=== PATIENT | female | born 1955 | race Caucasian/White ===

== ENCOUNTER 2020-11-30 12:16 | Inpatient (IN) ==
[2020-12-04] MEDS ORDERED: *HR* Dextrose 50 % in Water (Vial) 50 ML VIAL IVP PRN (14:58)
[2020-12-04] MEDS ORDERED: D5% in Water 1,000 ML IVC PRN (14:58)
[2020-12-04] MEDS ORDERED: Dextrose Gel 15 GM/37.5 ML TUBE PO PRN ×2 (14:58)
[2020-12-04] MEDS ORDERED: methocarbamoL 750 MG TABLET PO PRN (14:59)
[2020-12-04] MEDS ORDERED: Ondansetron ODT 4 MG TAB.RAPDIS SL PRN (14:59)
[2020-12-04] MEDS ORDERED: *HR* HYDROcodone/Acet 5/325 mg TABLET PO PRN (15:01)
[2020-12-04] MEDS ORDERED: MOM Conc 10 ML UD.LIQ PO PRN (15:04)
[2020-12-04] MEDS: Gabapentin 100 MG CAPSULE PO SCH (16:15)
[2020-12-04] MEDS: Furosemide 20 MG TABLET PO SCH ×2 (16:15→17:22)
[2020-12-04] MEDS: Insulin LISPRO 300 UNITS/3 ML VIAL SUBQ SCH ×2 (16:16→19:50)
[2020-12-04] MEDS ORDERED: Metoclopramide 10 MG/2 ML VIAL IVP ONE (18:35)
[2020-12-04] MEDS: Ondansetron ODT 4 MG TAB.RAPDIS SL PRN (18:41)
[2020-12-04] MEDS: Gabapentin 400 MG CAPSULE PO SCH (19:49)
[2020-12-04] MEDS: Magnesium Oxide 400 MG TABLET PO SCH (19:49)
[2020-12-04] MEDS: Sennosides/Docusate Sodium TABLET PO SCH (19:52)
[2020-12-04 22:29] LABS: Bilirubin,Urine Negative (Negative); Blood,Urine Negative (Negative); Clarity,Urine Slightly Cloudy (Clear); Color,Urine Dark Yellow (Yellow); Glucose,Urine (UA) Normal (Normal); Ketones,Urine Trace mg/dL (Negative); Leukocyte Esterase,Urine Negative (Negative); Nitrite,Urine Negative (Negative); Protein,Urine Negative (Neg-Trace); Urobilinogen,Urine Normal (Normal)
[2020-12-05] MEDS: *HR* OxyCODONE/APAP 5/325 TABLET PO PRN ×4 (00:14→19:45)
[2020-12-05] MEDS: Sennosides/Docusate Sodium TABLET PO SCH ×3 (00:15→19:45)
[2020-12-05] MEDS: *HR* Enoxaparin 40 MG/0.4 ML SYRINGE SQ SCH (04:51)
[2020-12-05 05:09] LABS: Hematocrit 30.6 % (35.3-44.9); Hemoglobin 9.5 g/dL (11.5-15.4); Mean Corpuscular Hemoglobin 34.4 pg (28.0-33.3); Mean Corpuscular Volume 110.9 fL (83.0-100.0); Mean Platelet Volume 8.7 fL (9.4-12.4); Red Blood Count 2.76 M/mcL (3.82-4.97); Red Cell Distribution Width 15.1 % (11.5-14.5); White Blood Count 2.9 K/mcL (4.3-11.1)
[2020-12-05 05:13] LABS: Platelet Count 289 K/mcL (140-400)
[2020-12-05 05:21] LABS: Alanine Aminotransferase 17 Units/L (7-52); Albumin 2.5 g/dL (3.5-5.7); Albumin/Globulin Ratio 1.1 (1.1-2.2); Alkaline Phosphatase 105 Units/L (34-104); Aspartate Amino Transferase 23 Units/L (13-39); BUN/Creatinine Ratio 19 (6-26); Bilirubin,Total 0.8 mg/dL (0.3-1.0); Blood Urea Nitrogen 8 mg/dL (8-23); Calcium 8.1 mg/dL (8.6-10.3); Carbon Dioxide 28 mEq/L (23-29); Chloride 105 mEq/L (98-107); Globulin 2.2 g/dL (2.4-3.5); Glucose 96 mg/dL (70-105); Magnesium 1.7 mg/dL (1.6-2.6); Osmolality,Calculated 288 (280-300); Potassium 4.4 mEq/L (3.5-5.1); Sodium 140 mEq/L (136-145); Total Protein 4.7 g/dL (6.4-8.9); Uric Acid 6.6 mg/dL (2.3-7.6); eGFR For African Americans > 60 (> 60); eGFR For Non-African Americans > 60 (> 60)
[2020-12-05] MEDS: Insulin LISPRO 300 UNITS/3 ML VIAL SUBQ SCH ×4 (07:47→21:16)
[2020-12-05] MEDS: Ondansetron ODT 4 MG TAB.RAPDIS SL PRN ×2 (08:17→15:54)
[2020-12-05] MEDS: polyethylene glycoL 3350 17 GM POWD.PACK PO SCH (08:54)
[2020-12-05] MEDS: Cholecalciferol (D-3) 1,000 UNIT (25MCG) TABLET PO SCH (08:54)
[2020-12-05] MEDS: Furosemide 20 MG TABLET PO SCH (08:54)
[2020-12-05] MEDS: Magnesium Oxide 400 MG TABLET PO SCH ×2 (08:54→19:45)
[2020-12-05] MEDS: Aspirin Enteric Coated 325 MG Tablet PO SCH (08:54)
[2020-12-05] MEDS: Gabapentin 100 MG CAPSULE PO SCH ×2 (08:54→13:24)
[2020-12-05] MEDS: Multivit/Ca/Min/Fe/FA 1 TAB TABLET PO SCH (08:54)
[2020-12-05] MEDS: Bisacodyl 10 MG RECTAL SUPPOSITORY RC SCH (08:54)
[2020-12-05] MEDS: Cyanocobalamin (B-12) 1,000 MCG TABLET PO SCH (08:55)
[2020-12-05 09:36] LABS: Estimated Average Glucose 74 mg/dl; Hemoglobin A1C 4.2 %
[2020-12-05] MEDS: 0.9 % Sodium Chloride 1,000 ML IVC SCH (17:22)
[2020-12-05] MEDS: methocarbamoL 500 MG TABLET PO PRN (18:43)
[2020-12-05] MEDS: Gabapentin 400 MG CAPSULE PO SCH (19:45)
[2020-12-06] MEDS: *HR* OxyCODONE/APAP 5/325 TABLET PO PRN ×2 (05:38→14:25)
[2020-12-06] MEDS: methocarbamoL 500 MG TABLET PO PRN ×2 (05:38→17:55)
[2020-12-06] MEDS: *HR* Enoxaparin 40 MG/0.4 ML SYRINGE SQ SCH (05:39)
[2020-12-06 07:06] LABS: Hematocrit 25.1 % (35.3-44.9); Mean Corpuscular HGB Conc 31.9 g/dL (31.6-35.5); Mean Corpuscular Hemoglobin 35.2 pg (28.0-33.3); Mean Corpuscular Volume 110.6 fL (83.0-100.0); Mean Platelet Volume 8.8 fL (9.4-12.4); Platelet Count 222 K/mcL (140-400); Red Blood Count 2.27 M/mcL (3.82-4.97); Red Cell Distribution Width 14.7 % (11.5-14.5); White Blood Count 3.2 K/mcL (4.3-11.1)
[2020-12-06 07:16] LABS: BUN/Creatinine Ratio 25 (6-26); Blood Urea Nitrogen 12 mg/dL (8-23); Calcium 7.5 mg/dL (8.6-10.3); Carbon Dioxide 29 mEq/L (23-29); Chloride 105 mEq/L (98-107); Glucose 101 mg/dL (70-105); Osmolality,Calculated 284 (280-300); Potassium 4.4 mEq/L (3.5-5.1); Sodium 137 mEq/L (136-145); eGFR For African Americans > 60 (> 60); eGFR For Non-African Americans > 60 (> 60)
[2020-12-06] MEDS: Gabapentin 100 MG CAPSULE PO SCH ×2 (08:40→14:24)
[2020-12-06] MEDS: Sennosides/Docusate Sodium TABLET PO SCH ×2 (08:50→22:21)
[2020-12-06] MEDS: Bisacodyl 10 MG RECTAL SUPPOSITORY RC SCH ×2 (08:51→22:22)
[2020-12-06] MEDS: Cyanocobalamin (B-12) 1,000 MCG TABLET PO SCH (08:51)
[2020-12-06] MEDS: Cholecalciferol (D-3) 1,000 UNIT (25MCG) TABLET PO SCH (08:51)
[2020-12-06] MEDS: Multivit/Ca/Min/Fe/FA 1 TAB TABLET PO SCH (08:51)
[2020-12-06] MEDS: Magnesium Oxide 400 MG TABLET PO SCH ×2 (08:51→22:21)
[2020-12-06] MEDS: Ondansetron ODT 4 MG TAB.RAPDIS SL PRN (08:51)
[2020-12-06] MEDS: Aspirin Enteric Coated 325 MG Tablet PO SCH (08:51)
[2020-12-06] MEDS: polyethylene glycoL 3350 17 GM POWD.PACK PO SCH (08:51)
[2020-12-06] MEDS: Insulin LISPRO 300 UNITS/3 ML VIAL SUBQ SCH ×4 (08:52→21:53)
[2020-12-06] MEDS: 0.9 % Sodium Chloride 1,000 ML IVC SCH (08:52)
[2020-12-06] MEDS: Gabapentin 400 MG CAPSULE PO SCH (22:21)
[2020-12-07] MEDS: *HR* Enoxaparin 40 MG/0.4 ML SYRINGE SQ SCH (05:03)
[2020-12-07] MEDS: *HR* OxyCODONE/APAP 5/325 TABLET PO PRN ×2 (05:03→15:33)
[2020-12-07] MEDS: Insulin LISPRO 300 UNITS/3 ML VIAL SUBQ SCH ×4 (08:03→20:42)
[2020-12-07] MEDS: polyethylene glycoL 3350 17 GM POWD.PACK PO SCH (08:12)
[2020-12-07] MEDS: Cyanocobalamin (B-12) 1,000 MCG TABLET PO SCH (08:12)
[2020-12-07] MEDS: Ondansetron ODT 4 MG TAB.RAPDIS SL PRN (08:13)
[2020-12-07] MEDS: Gabapentin 100 MG CAPSULE PO SCH ×2 (08:13→15:34)
[2020-12-07] MEDS: methocarbamoL 500 MG TABLET PO PRN ×2 (08:13→20:14)
[2020-12-07] MEDS: Sennosides/Docusate Sodium TABLET PO SCH ×2 (08:13→20:21)
[2020-12-07] MEDS: Multivit/Ca/Min/Fe/FA 1 TAB TABLET PO SCH (08:13)
[2020-12-07] MEDS: Cholecalciferol (D-3) 1,000 UNIT (25MCG) TABLET PO SCH (08:13)
[2020-12-07] MEDS: Magnesium Oxide 400 MG TABLET PO SCH ×2 (08:14→20:12)
[2020-12-07] MEDS: Aspirin Enteric Coated 81 MG Tablet PO SCH (08:14)
[2020-12-07] MEDS: Furosemide 20 MG TABLET PO SCH (15:34)
[2020-12-07] MEDS: Gabapentin 400 MG CAPSULE PO SCH (20:13)
[2020-12-07] MEDS: Bisacodyl 10 MG RECTAL SUPPOSITORY RC SCH (20:20)
[2020-12-08] MEDS: *HR* OxyCODONE/APAP 5/325 TABLET PO PRN ×2 (01:48→11:29)
[2020-12-08] MEDS: *HR* Enoxaparin 40 MG/0.4 ML SYRINGE SQ SCH (06:50)
[2020-12-08] MEDS: Insulin LISPRO 300 UNITS/3 ML VIAL SUBQ SCH ×4 (07:58→20:38)
[2020-12-08] MEDS: Furosemide 20 MG TABLET PO SCH ×2 (08:47→16:39)
[2020-12-08] MEDS: Gabapentin 100 MG CAPSULE PO SCH ×2 (08:47→14:29)
[2020-12-08] MEDS: Multivit/Ca/Min/Fe/FA 1 TAB TABLET PO SCH (08:47)
[2020-12-08] MEDS: Cholecalciferol (D-3) 1,000 UNIT (25MCG) TABLET PO SCH (08:47)
[2020-12-08] MEDS: Aspirin Enteric Coated 81 MG Tablet PO SCH (08:47)
[2020-12-08] MEDS: Magnesium Oxide 400 MG TABLET PO SCH ×2 (08:47→20:39)
[2020-12-08] MEDS: Sennosides/Docusate Sodium TABLET PO SCH ×2 (08:47→20:38)
[2020-12-08] MEDS: polyethylene glycoL 3350 17 GM POWD.PACK PO SCH (08:47)
[2020-12-08] MEDS: Cyanocobalamin (B-12) 1,000 MCG TABLET PO SCH (08:47)
[2020-12-08] MEDS: *HR* HYDROcodone/Acet 7.5/325 mg TABLET PO PRN (08:55)
[2020-12-08] MEDS: methocarbamoL 500 MG TABLET PO PRN (14:29)
[2020-12-08] MEDS ORDERED: tiZANidine 4 MG TABLET PO PRN (15:21)
[2020-12-08] MEDS: Gabapentin 400 MG CAPSULE PO SCH (20:38)
[2020-12-08] MEDS: Bisacodyl 10 MG RECTAL SUPPOSITORY RC SCH (20:39)
[2020-12-09] MEDS: *HR* HYDROcodone/Acet 7.5/325 mg TABLET PO PRN ×4 (01:55→21:14)
[2020-12-09] MEDS: *HR* Enoxaparin 40 MG/0.4 ML SYRINGE SQ SCH (04:58)
[2020-12-09 05:46] LABS: Hematocrit 26.9 % (35.3-44.9); Hemoglobin 8.2 g/dL (11.5-15.4); Mean Corpuscular HGB Conc 30.5 g/dL (31.6-35.5); Mean Corpuscular Hemoglobin 33.2 pg (28.0-33.3); Mean Corpuscular Volume 108.9 fL (83.0-100.0); Mean Platelet Volume 9.2 fL (9.4-12.4); Platelet Count 260 K/mcL (140-400); Red Blood Count 2.47 M/mcL (3.82-4.97); Red Cell Distribution Width 14.4 % (11.5-14.5); White Blood Count 2.7 K/mcL (4.3-11.1)
[2020-12-09 06:04] LABS: Alanine Aminotransferase 13 Units/L (7-52); Albumin 2.2 g/dL (3.5-5.7); Albumin/Globulin Ratio 1.2 (1.1-2.2); Alkaline Phosphatase 104 Units/L (34-104); Aspartate Amino Transferase 20 Units/L (13-39); BUN/Creatinine Ratio 22 (6-26); Bilirubin,Total 0.5 mg/dL (0.3-1.0); Blood Urea Nitrogen 8 mg/dL (8-23); Calcium 7.7 mg/dL (8.6-10.3); Carbon Dioxide 30 mEq/L (23-29); Chloride 107 mEq/L (98-107); Globulin 1.8 g/dL (2.4-3.5); Glucose 77 mg/dL (70-105); Magnesium 1.6 mg/dL (1.6-2.6); Osmolality,Calculated 293 (280-300); Potassium 4.1 mEq/L (3.5-5.1); Sodium 143 mEq/L (136-145); eGFR For African Americans > 60 (> 60); eGFR For Non-African Americans > 60 (> 60)
[2020-12-09] MEDS: Insulin LISPRO 300 UNITS/3 ML VIAL SUBQ SCH ×4 (07:47→20:26)
[2020-12-09] MEDS: Cholecalciferol (D-3) 1,000 UNIT (25MCG) TABLET PO SCH (08:31)
[2020-12-09] MEDS: Gabapentin 100 MG CAPSULE PO SCH ×2 (08:32→14:59)
[2020-12-09] MEDS: Furosemide 20 MG TABLET PO SCH ×2 (08:32→17:09)
[2020-12-09] MEDS: Aspirin Enteric Coated 81 MG Tablet PO SCH (08:32)
[2020-12-09] MEDS: Magnesium Oxide 400 MG TABLET PO SCH ×2 (08:32→20:26)
[2020-12-09] MEDS: Multivit/Ca/Min/Fe/FA 1 TAB TABLET PO SCH (08:32)
[2020-12-09] MEDS: Cyanocobalamin (B-12) 1,000 MCG TABLET PO SCH (08:32)
[2020-12-09] MEDS: Sennosides/Docusate Sodium TABLET PO SCH ×2 (08:33→20:27)
[2020-12-09] MEDS: polyethylene glycoL 3350 17 GM POWD.PACK PO SCH (08:33)
[2020-12-09] MEDS: Gabapentin 400 MG CAPSULE PO SCH (20:26)
[2020-12-09] MEDS: Bisacodyl 10 MG RECTAL SUPPOSITORY RC SCH (20:26)
[2020-12-10] MEDS: *HR* HYDROcodone/Acet 7.5/325 mg TABLET PO PRN ×2 (04:18→11:55)
[2020-12-10] MEDS: *HR* Enoxaparin 40 MG/0.4 ML SYRINGE SQ SCH (05:14)
[2020-12-10] MEDS: Insulin LISPRO 300 UNITS/3 ML VIAL SUBQ SCH ×4 (08:04→20:36)
[2020-12-10] MEDS: Furosemide 20 MG TABLET PO SCH ×2 (08:26→17:05)
[2020-12-10] MEDS: polyethylene glycoL 3350 17 GM POWD.PACK PO SCH (08:26)
[2020-12-10] MEDS: Sennosides/Docusate Sodium TABLET PO SCH ×2 (08:26→20:36)
[2020-12-10] MEDS: Gabapentin 100 MG CAPSULE PO SCH ×2 (08:54→17:06)
[2020-12-10] MEDS: Cyanocobalamin (B-12) 1,000 MCG TABLET PO SCH (08:55)
[2020-12-10] MEDS: Aspirin Enteric Coated 81 MG Tablet PO SCH (08:55)
[2020-12-10] MEDS: Multivit/Ca/Min/Fe/FA 1 TAB TABLET PO SCH (08:56)
[2020-12-10] MEDS: Magnesium Oxide 400 MG TABLET PO SCH ×2 (08:56→20:36)
[2020-12-10] MEDS: Cholecalciferol (D-3) 1,000 UNIT (25MCG) TABLET PO SCH (08:56)
[2020-12-10] MEDS: tiZANidine 4 MG TABLET PO SCH ×2 (17:06→20:36)
[2020-12-10] MEDS: Gabapentin 400 MG CAPSULE PO SCH (20:36)
[2020-12-10] MEDS: Bisacodyl 10 MG RECTAL SUPPOSITORY RC SCH (20:36)
[2020-12-11] MEDS: *HR* HYDROcodone/Acet 7.5/325 mg TABLET PO PRN ×3 (00:29→13:05)
[2020-12-11] MEDS: *HR* Enoxaparin 40 MG/0.4 ML SYRINGE SQ SCH (05:42)
[2020-12-11] MEDS: Insulin LISPRO 300 UNITS/3 ML VIAL SUBQ SCH ×4 (08:20→21:03)
[2020-12-11] MEDS: Aspirin Enteric Coated 81 MG Tablet PO SCH (08:28)
[2020-12-11] MEDS: polyethylene glycoL 3350 17 GM POWD.PACK PO SCH (08:28)
[2020-12-11] MEDS: Sennosides/Docusate Sodium TABLET PO SCH (08:28)
[2020-12-11] MEDS: Cyanocobalamin (B-12) 1,000 MCG TABLET PO SCH (08:29)
[2020-12-11] MEDS: Furosemide 20 MG TABLET PO SCH ×2 (08:29→16:36)
[2020-12-11] MEDS: tiZANidine 4 MG TABLET PO SCH ×3 (08:29→21:03)
[2020-12-11] MEDS: Cholecalciferol (D-3) 1,000 UNIT (25MCG) TABLET PO SCH (08:29)
[2020-12-11] MEDS: Gabapentin 100 MG CAPSULE PO SCH ×2 (08:29→14:29)
[2020-12-11] MEDS: Magnesium Oxide 400 MG TABLET PO SCH ×2 (08:30→21:03)
[2020-12-11] MEDS: Multivit/Ca/Min/Fe/FA 1 TAB TABLET PO SCH (08:30)
[2020-12-11] MEDS ORDERED: polyethylene glycoL 3350 17 GM POWD.PACK PO PRN (13:10)
[2020-12-11] MEDS ORDERED: Sennosides/Docusate Sodium TABLET PO PRN (13:10)
[2020-12-11] MEDS ORDERED: Bisacodyl 10 MG RECTAL SUPPOSITORY RC PRN (13:10)
[2020-12-11] MEDS: Acetaminophen 325 MG TABLET PO PRN ×2 (14:33→21:03)
[2020-12-11] MEDS: Gabapentin 400 MG CAPSULE PO SCH (21:03)
[2020-12-12] MEDS: *HR* HYDROcodone/Acet 7.5/325 mg TABLET PO PRN ×4 (03:08→23:01)
[2020-12-12] MEDS: *HR* Enoxaparin 40 MG/0.4 ML SYRINGE SQ SCH (05:17)
[2020-12-12] MEDS: Acetaminophen 325 MG TABLET PO PRN ×2 (05:17→21:34)
[2020-12-12] MEDS: Gabapentin 100 MG CAPSULE PO SCH ×2 (08:02→13:55)
[2020-12-12] MEDS: Multivit/Ca/Min/Fe/FA 1 TAB TABLET PO SCH (08:02)
[2020-12-12] MEDS: Cyanocobalamin (B-12) 1,000 MCG TABLET PO SCH (08:02)
[2020-12-12] MEDS: Magnesium Oxide 400 MG TABLET PO SCH ×2 (08:02→21:33)
[2020-12-12] MEDS: Aspirin Enteric Coated 81 MG Tablet PO SCH (08:02)
[2020-12-12] MEDS: Furosemide 20 MG TABLET PO SCH ×3 (08:02→18:04)
[2020-12-12] MEDS: Cholecalciferol (D-3) 1,000 UNIT (25MCG) TABLET PO SCH (08:02)
[2020-12-12] MEDS: tiZANidine 4 MG TABLET PO SCH ×3 (08:03→21:34)
[2020-12-12] MEDS: Insulin LISPRO 300 UNITS/3 ML VIAL SUBQ SCH ×4 (08:03→21:33)
[2020-12-12] MEDS: *HR* Enoxaparin 80 MG/0.8 ML SYRINGE SQ SCH (19:02)
[2020-12-12 19:35] LABS: INR 1.1; Prothrombin Time 13.1 Seconds (9.4-12.1)
[2020-12-12] MEDS ORDERED: *HR* Warfarin 5 MG TABLET PO ONE (21:00)
[2020-12-12] MEDS: Gabapentin 400 MG CAPSULE PO SCH (21:33)
[2020-12-13] MEDS: *HR* Enoxaparin 80 MG/0.8 ML SYRINGE SQ SCH ×2 (05:37→18:09)
[2020-12-13] MEDS: *HR* HYDROcodone/Acet 7.5/325 mg TABLET PO PRN ×3 (05:39→22:07)
[2020-12-13] MEDS: Aspirin Enteric Coated 81 MG Tablet PO SCH (08:03)
[2020-12-13] MEDS: Cholecalciferol (D-3) 1,000 UNIT (25MCG) TABLET PO SCH (08:04)
[2020-12-13] MEDS: Furosemide 20 MG TABLET PO SCH ×2 (08:04→15:33)
[2020-12-13] MEDS: tiZANidine 4 MG TABLET PO SCH ×3 (08:04→22:07)
[2020-12-13] MEDS: Gabapentin 100 MG CAPSULE PO SCH ×2 (08:04→15:29)
[2020-12-13] MEDS: Magnesium Oxide 400 MG TABLET PO SCH ×2 (08:04→22:06)
[2020-12-13] MEDS: Multivit/Ca/Min/Fe/FA 1 TAB TABLET PO SCH (08:04)
[2020-12-13] MEDS: Cyanocobalamin (B-12) 1,000 MCG TABLET PO SCH (08:04)
[2020-12-13] MEDS: Insulin LISPRO 300 UNITS/3 ML VIAL SUBQ SCH ×4 (08:05→22:06)
[2020-12-13 13:44] LABS: INR 1.1; Prothrombin Time 12.7 Seconds (9.4-12.1)
[2020-12-13] MEDS ORDERED: *HR* Warfarin 5 MG TABLET PO SCH (18:00)
[2020-12-13] MEDS ORDERED: *HR* Warfarin 5 MG TABLET PO ONE (18:00)
[2020-12-13] MEDS ORDERED: Warfarin perPT PO PRN (18:00)
[2020-12-13] MEDS: Acetaminophen 325 MG TABLET PO PRN (18:08)
[2020-12-13] MEDS: Gabapentin 400 MG CAPSULE PO SCH (22:07)
[2020-12-14 05:21] LABS: INR 1.2; Prothrombin Time 13.5 Seconds (9.4-12.1)
[2020-12-14] MEDS: *HR* Enoxaparin 80 MG/0.8 ML SYRINGE SQ SCH ×2 (06:42→17:53)
[2020-12-14] MEDS: *HR* HYDROcodone/Acet 7.5/325 mg TABLET PO PRN ×2 (06:43→12:53)
[2020-12-14] MEDS: Insulin LISPRO 300 UNITS/3 ML VIAL SUBQ SCH ×4 (08:24→21:36)
[2020-12-14] MEDS: Magnesium Oxide 400 MG TABLET PO SCH ×2 (08:26→21:36)
[2020-12-14] MEDS: Furosemide 20 MG TABLET PO SCH ×2 (08:26→16:15)
[2020-12-14] MEDS: Aspirin Enteric Coated 81 MG Tablet PO SCH (08:26)
[2020-12-14] MEDS: Cholecalciferol (D-3) 1,000 UNIT (25MCG) TABLET PO SCH (08:26)
[2020-12-14] MEDS: Gabapentin 100 MG CAPSULE PO SCH ×2 (08:26→16:14)
[2020-12-14] MEDS: Multivit/Ca/Min/Fe/FA 1 TAB TABLET PO SCH (08:26)
[2020-12-14] MEDS: Cyanocobalamin (B-12) 1,000 MCG TABLET PO SCH (08:27)
[2020-12-14] MEDS: tiZANidine 4 MG TABLET PO SCH ×3 (08:27→21:35)
[2020-12-14] MEDS ORDERED: *HR* Warfarin 5 MG TABLET PO ONE (18:00)
[2020-12-14] MEDS: Gabapentin 400 MG CAPSULE PO SCH (21:35)
[2020-12-14] MEDS: Acetaminophen 325 MG TABLET PO PRN (21:36)
[2020-12-15] MEDS: *HR* HYDROcodone/Acet 7.5/325 mg TABLET PO PRN ×3 (04:34→18:25)
[2020-12-15] MEDS: *HR* Enoxaparin 80 MG/0.8 ML SYRINGE SQ SCH ×2 (04:35→18:25)
[2020-12-15 06:19] LABS: INR 1.5; Prothrombin Time 17.4 Seconds (9.4-12.1)
[2020-12-15] MEDS: Multivit/Ca/Min/Fe/FA 1 TAB TABLET PO SCH (08:14)
[2020-12-15] MEDS: Gabapentin 100 MG CAPSULE PO SCH ×2 (08:14→16:28)
[2020-12-15] MEDS: Cholecalciferol (D-3) 1,000 UNIT (25MCG) TABLET PO SCH (08:14)
[2020-12-15] MEDS: tiZANidine 4 MG TABLET PO SCH ×3 (08:14→22:27)
[2020-12-15] MEDS: Aspirin Enteric Coated 81 MG Tablet PO SCH (08:17)
[2020-12-15] MEDS: Insulin LISPRO 300 UNITS/3 ML VIAL SUBQ SCH ×4 (08:17→22:28)
[2020-12-15] MEDS: Furosemide 20 MG TABLET PO SCH ×2 (08:17→16:29)
[2020-12-15] MEDS: Cyanocobalamin (B-12) 1,000 MCG TABLET PO SCH (08:17)
[2020-12-15] MEDS: Magnesium Oxide 400 MG TABLET PO SCH ×2 (08:17→22:27)
[2020-12-15] MEDS ORDERED: *HR* Warfarin 5 MG TABLET PO ONE (18:00)
[2020-12-15] MEDS: Gabapentin 400 MG CAPSULE PO SCH (22:27)
[2020-12-15] MEDS: Acetaminophen 325 MG TABLET PO PRN (22:27)
[2020-12-16] MEDS: *HR* Enoxaparin 80 MG/0.8 ML SYRINGE SQ SCH ×2 (04:58→17:38)
[2020-12-16] MEDS: *HR* HYDROcodone/Acet 7.5/325 mg TABLET PO PRN ×3 (05:00→22:46)
[2020-12-16 05:39] LABS: Hematocrit 26.4 % (35.3-44.9); Hemoglobin 7.9 g/dL (11.5-15.4); Mean Corpuscular HGB Conc 29.9 g/dL (31.6-35.5); Mean Corpuscular Hemoglobin 32.5 pg (28.0-33.3); Mean Corpuscular Volume 108.6 fL (83.0-100.0); Mean Platelet Volume 9.2 fL (9.4-12.4); Platelet Count 180 K/mcL (140-400); Red Blood Count 2.43 M/mcL (3.82-4.97); White Blood Count 2.7 K/mcL (4.3-11.1)
[2020-12-16 05:42] LABS: INR 1.5; Prothrombin Time 17.3 Seconds (9.4-12.1)
[2020-12-16 05:56] LABS: Alanine Aminotransferase 13 Units/L (7-52); Albumin 2.3 g/dL (3.5-5.7); Alkaline Phosphatase 105 Units/L (34-104); Aspartate Amino Transferase 24 Units/L (13-39); BUN/Creatinine Ratio 38 (6-26); Bilirubin,Total 0.3 mg/dL (0.3-1.0); Blood Urea Nitrogen 15 mg/dL (8-23); Calcium 7.8 mg/dL (8.6-10.3); Carbon Dioxide 25 mEq/L (23-29); Chloride 111 mEq/L (98-107); Globulin 2.2 g/dL (2.4-3.5); Glucose 76 mg/dL (70-105); Magnesium 1.6 mg/dL (1.6-2.6); Osmolality,Calculated 294 (280-300); Sodium 142 mEq/L (136-145); Total Protein 4.5 g/dL (6.4-8.9); eGFR For African Americans > 60 (> 60); eGFR For Non-African Americans > 60 (> 60)
[2020-12-16] MEDS: tiZANidine 4 MG TABLET PO SCH ×3 (08:27→22:22)
[2020-12-16] MEDS: Magnesium Oxide 400 MG TABLET PO SCH ×2 (08:27→22:21)
[2020-12-16] MEDS: Aspirin Enteric Coated 81 MG Tablet PO SCH (08:27)
[2020-12-16] MEDS: Gabapentin 100 MG CAPSULE PO SCH ×2 (08:27→15:37)
[2020-12-16] MEDS: Cyanocobalamin (B-12) 1,000 MCG TABLET PO SCH (08:27)
[2020-12-16] MEDS: Cholecalciferol (D-3) 1,000 UNIT (25MCG) TABLET PO SCH (08:27)
[2020-12-16] MEDS: Multivit/Ca/Min/Fe/FA 1 TAB TABLET PO SCH (08:27)
[2020-12-16] MEDS: Insulin LISPRO 300 UNITS/3 ML VIAL SUBQ SCH ×4 (08:28→20:34)
[2020-12-16] MEDS: Furosemide 20 MG TABLET PO SCH (08:28)
[2020-12-16] MEDS: Furosemide 40 MG TABLET PO SCH (17:03)
[2020-12-16] MEDS: Acetaminophen 325 MG TABLET PO PRN (17:53)
[2020-12-16] MEDS ORDERED: *HR* Warfarin 5 MG TABLET PO ONE (18:00)
[2020-12-16] MEDS: Gabapentin 400 MG CAPSULE PO SCH (22:21)
[2020-12-17 04:45] LABS: INR 1.5; Prothrombin Time 16.8 Seconds (9.4-12.1)
[2020-12-17] MEDS: *HR* Enoxaparin 80 MG/0.8 ML SYRINGE SQ SCH ×2 (06:13→17:03)
[2020-12-17] MEDS: *HR* HYDROcodone/Acet 7.5/325 mg TABLET PO PRN ×3 (06:13→18:18)
[2020-12-17] MEDS: Insulin LISPRO 300 UNITS/3 ML VIAL SUBQ SCH ×4 (07:56→21:31)
[2020-12-17] MEDS: Aspirin Enteric Coated 81 MG Tablet PO SCH (08:29)
[2020-12-17] MEDS: Cyanocobalamin (B-12) 1,000 MCG TABLET PO SCH (08:29)
[2020-12-17] MEDS: tiZANidine 4 MG TABLET PO SCH ×3 (08:29→21:06)
[2020-12-17] MEDS: Magnesium Oxide 400 MG TABLET PO SCH ×2 (08:29→21:06)
[2020-12-17] MEDS: Multivit/Ca/Min/Fe/FA 1 TAB TABLET PO SCH (08:29)
[2020-12-17] MEDS: Cholecalciferol (D-3) 1,000 UNIT (25MCG) TABLET PO SCH (08:29)
[2020-12-17] MEDS: Gabapentin 100 MG CAPSULE PO SCH ×2 (08:30→14:57)
[2020-12-17] MEDS: Furosemide 40 MG TABLET PO SCH ×2 (08:30→17:02)
[2020-12-17] MEDS ORDERED: *HR* Warfarin 7.5 MG TABLET PO ONE (18:00)
[2020-12-17] MEDS: Gabapentin 400 MG CAPSULE PO SCH (21:06)
[2020-12-18] MEDS: *HR* HYDROcodone/Acet 7.5/325 mg TABLET PO PRN ×4 (00:44→22:42)
[2020-12-18] MEDS: Acetaminophen 325 MG TABLET PO PRN (03:19)
[2020-12-18 05:17] LABS: Hematocrit 25.5 % (35.3-44.9); Hemoglobin 7.9 g/dL (11.5-15.4); Mean Corpuscular Hemoglobin 33.6 pg (28.0-33.3); Mean Corpuscular Volume 108.5 fL (83.0-100.0); Platelet Count 143 K/mcL (140-400); Red Blood Count 2.35 M/mcL (3.82-4.97); White Blood Count 2.6 K/mcL (4.3-11.1)
[2020-12-18 05:21] LABS: INR 1.6; Prothrombin Time 17.9 Seconds (9.4-12.1)
[2020-12-18 05:32] LABS: Alanine Aminotransferase 12 Units/L (7-52); Albumin 2.2 g/dL (3.5-5.7); Alkaline Phosphatase 93 Units/L (34-104); Aspartate Amino Transferase 23 Units/L (13-39); BUN/Creatinine Ratio 34 (6-26); Bilirubin,Total 0.3 mg/dL (0.3-1.0); Blood Urea Nitrogen 13 mg/dL (8-23); Calcium 7.9 mg/dL (8.6-10.3); Carbon Dioxide 29 mEq/L (23-29); Chloride 109 mEq/L (98-107); Globulin 2.1 g/dL (2.4-3.5); Glucose 83 mg/dL (70-105); Magnesium 1.5 mg/dL (1.6-2.6); Osmolality,Calculated 295 (280-300); Potassium 3.9 mEq/L (3.5-5.1); Sodium 143 mEq/L (136-145); Total Protein 4.3 g/dL (6.4-8.9); eGFR For African Americans > 60 (> 60); eGFR For Non-African Americans > 60 (> 60)
[2020-12-18] MEDS: *HR* Enoxaparin 80 MG/0.8 ML SYRINGE SQ SCH ×2 (06:30→18:12)
[2020-12-18 08:11] LABS: % Iron Saturation 25 % (15-50); Iron 39 mcg/dL (50-170); Transferrin 112 mg/dL (203-362)
[2020-12-18] MEDS: Insulin LISPRO 300 UNITS/3 ML VIAL SUBQ SCH ×4 (08:39→22:39)
[2020-12-18] MEDS: Cyanocobalamin (B-12) 1,000 MCG TABLET PO SCH (08:41)
[2020-12-18] MEDS: Magnesium Oxide 400 MG TABLET PO SCH ×2 (08:41→22:43)
[2020-12-18] MEDS: Gabapentin 100 MG CAPSULE PO SCH ×2 (08:41→15:02)
[2020-12-18] MEDS: Aspirin Enteric Coated 81 MG Tablet PO SCH (08:41)
[2020-12-18] MEDS: Furosemide 40 MG TABLET PO SCH ×2 (08:41→15:06)
[2020-12-18] MEDS: tiZANidine 4 MG TABLET PO SCH ×3 (08:41→22:43)
[2020-12-18] MEDS: Multivit/Ca/Min/Fe/FA 1 TAB TABLET PO SCH (08:42)
[2020-12-18] MEDS: Cholecalciferol (D-3) 1,000 UNIT (25MCG) TABLET PO SCH (08:42)
[2020-12-18] MEDS ORDERED: *HR* Warfarin 7.5 MG TABLET PO ONE (18:00)
[2020-12-18] MEDS: Gabapentin 400 MG CAPSULE PO SCH (22:42)
[2020-12-19 05:10] LABS: INR 1.7; Prothrombin Time 19.6 Seconds (9.4-12.1)
[2020-12-19] MEDS: *HR* Enoxaparin 80 MG/0.8 ML SYRINGE SQ SCH ×2 (05:11→17:15)
[2020-12-19] MEDS: *HR* HYDROcodone/Acet 7.5/325 mg TABLET PO PRN ×4 (05:12→23:48)
[2020-12-19] MEDS: Insulin LISPRO 300 UNITS/3 ML VIAL SUBQ SCH ×4 (07:51→21:12)
[2020-12-19] MEDS: Gabapentin 100 MG CAPSULE PO SCH ×2 (08:30→15:55)
[2020-12-19] MEDS: Aspirin Enteric Coated 81 MG Tablet PO SCH (08:30)
[2020-12-19] MEDS: Magnesium Oxide 400 MG TABLET PO SCH ×2 (08:30→21:12)
[2020-12-19] MEDS: Furosemide 40 MG TABLET PO SCH ×2 (08:30→15:55)
[2020-12-19] MEDS: Cyanocobalamin (B-12) 1,000 MCG TABLET PO SCH (08:30)
[2020-12-19] MEDS: Cholecalciferol (D-3) 1,000 UNIT (25MCG) TABLET PO SCH (08:30)
[2020-12-19] MEDS: Multivit/Ca/Min/Fe/FA 1 TAB TABLET PO SCH (08:30)
[2020-12-19] MEDS: tiZANidine 4 MG TABLET PO SCH ×3 (08:33→21:12)
[2020-12-19] MEDS ORDERED: *HR* Warfarin 5 MG TABLET PO ONE (18:00)
[2020-12-19] MEDS: Gabapentin 400 MG CAPSULE PO SCH (21:12)
[2020-12-20 05:29] LABS: Prothrombin Time 22.8 Seconds (9.4-12.1)
[2020-12-20] MEDS: *HR* HYDROcodone/Acet 7.5/325 mg TABLET PO PRN (05:56)
[2020-12-20] MEDS: *HR* Enoxaparin 80 MG/0.8 ML SYRINGE SQ SCH ×2 (05:57→16:28)
[2020-12-20] MEDS: Insulin LISPRO 300 UNITS/3 ML VIAL SUBQ SCH ×3 (09:32→16:29)
[2020-12-20] MEDS: Gabapentin 100 MG CAPSULE PO SCH ×2 (09:37→16:29)
[2020-12-20] MEDS: Furosemide 40 MG TABLET PO SCH (09:37)
[2020-12-20] MEDS: tiZANidine 4 MG TABLET PO SCH ×2 (09:37→16:29)
[2020-12-20] MEDS: Magnesium Oxide 400 MG TABLET PO SCH (10:01)
[2020-12-20] MEDS: Cyanocobalamin (B-12) 1,000 MCG TABLET PO SCH (10:01)
[2020-12-20] MEDS: Cholecalciferol (D-3) 1,000 UNIT (25MCG) TABLET PO SCH (10:02)
[2020-12-20] MEDS: Multivit/Ca/Min/Fe/FA 1 TAB TABLET PO SCH (10:02)
[2020-12-20] MEDS: Aspirin Enteric Coated 81 MG Tablet PO SCH (10:02)
[2020-12-20] MEDS: Ondansetron ODT 4 MG TAB.RAPDIS SL PRN (13:27)
[2020-12-20] MEDS ORDERED: *HR* HYDROcodone/Acet 5/325 mg TABLET PO PRN (13:30)
[2020-12-20 16:28] VITALS: BP 121/79
[2020-12-20] MEDS ORDERED: Furosemide 40 MG TABLET PO SCH (17:00)
[2020-12-20] MEDS ORDERED: *HR* Warfarin 7.5 MG TABLET PO ONE (18:00)
== END 2020-12-20 18:20 | DRG 560 ==
LOC: INPGRE 12-04 13:55
PROVIDERS: ADMIT Family Medicine; ATTEND Family Medicine